=== PATIENT | female | born 1995 | race Caucasian/White ===

== ENCOUNTER 2022-11-20 16:17 | Outpatient (CLI) | payer OTHER | END 2022-11-20 16:18 | disposition home or self-care (01) | LOC: LAB 16:17 | PROVIDERS: ATTEND Nurse Practitioner Obstetrics & Gynecology | DX: O20.0 Threatened abortion (principal) | CPT/HCPCS: 36415; 84702 ==

== ENCOUNTER 2023-11-26 15:03 | Outpatient (CLI) | payer OTHER ==
--- NOTE | 2023-11-26 21:39 | Ultrasound Report ---
PROCEDURE: OB Anatomy Scan INDICATIONS: SUPERVISON OF OUTSIDE/PRIOR DATING DATA: Last menstrual period (LMP): 07/06/2019. LMP-based estimated date of delivery (IONA): 12-24. First dating scan (date and location): 11/26/2023. Estimated date of delivery (IONA) from first dating scan: 04/13/2024. The below data below was generated using the IVF transfer date IONA of 04/13/2024 TECHNIQUE: Real-time scanning was performed of the fetus, with image documentation and biometric measurements. Endovaginal scanning: Not performed. COMPARISON: None. FINDINGS: General: A single living intrauterine gestation is present. Presentation: Vertex Placenta: Placental position is anterior, without previa. Amniotic fluid index: 13.3 cm, within normal limits for gestational age. Largest pocket is 4.5 cm. heart rate: 148 beats per minute. Maternal cervical canal: Closed at 4.4 cm long; normal length is 2.5 cm or more. biometrics: Biparietal diameter: 4.7 cm, 20 weeks 2 days, 60th percentile Head circumference: 17.6 cm, 20 weeks 1 day, 46th percentile Abdominal circumference: 15.2 cm, 20 weeks 3 days, 58th percentile Femur length: 3.4 cm, 20 weeks 6 days, 72nd percentile Estimated gestational age from initial scan: 20 weeks 0 days Composite gestational age from present scan: 20 weeks 1 day Estimated weight and percentile: 360 g, 76th percentile Measurement variability in biometric dating: +/- 10 days from 12-20 weeks gestation, +/- 2 weeks from 20-30 weeks gestation, +/- 3 weeks at 30 weeks gestation or later. Anatomic survey: Neuro: Ventricles are normal at less than 10 mm. Cisterna magna is normal at 3-11 mm. Cerebellum i s normal in size and morphology. Nuchal skin fold: Normal at less than 6 mm between 14 and 20 weeks gestational age. Face: Nose and lips, facial profile are normal. Spine: No evidence for spina bifida. Heart: 4-chambered heart is present, with normal ventricular outflow tracts. Diaphragm: Diaphragm is intact. Stomach: Left-sided stomach is present. Kidneys: No hydronephrosis. Normal is less than 5 mm in 2nd trimester, less than 7 mm in 3rd trimester. Cord: 3 vessel cord has orthotopic insertion. Bladder: Normal in size. Extremities: All 4 extremities are visualized. IMPRESSION: Single live intrauterine with estimated weight at the 76th percentile. Symmetric growth and normal anatomy. Anterior placenta without previa. Closed cervix and normal amniotic fluid volume. Reviewed by: Marta Melendez MD on 11/26/2023 9:37 PM PDT Approved by: Marta Melendez MD on 11/26/2023 9:37 PM PDT Station ID: [id number]
== END 2023-11-26 15:04 | disposition home or self-care (01) ==
LOC: DI 15:03
PROVIDERS: ATTEND Nurse Practitioner Obstetrics & Gynecology
DX: Z34.02 Encounter for supervision of normal first pregnancy, second trimester (principal); Z36.89 Encounter for other specified antenatal screening

== ENCOUNTER 2023-12-31 09:38 | Outpatient (CLI) | payer OTHER ==
[2023-12-31 10:53] LABS: HCT - HEMATOCRIT 32.8 % (37.0-47.0); HGB - HEMOGLOBIN 10.9 g/dL (12.0-16.0); MEAN CORPUSCULAR HEMOGLOBIN 30.2 pg (27.0-31.0); MEAN CORPUSCULAR HGB CONC 33.2 g/dL (32.0-36.0); MEAN CORPUSCULAR VOLUME 90.9 fL (81.0-99.0); MEAN PLATELET VOLUME 10.8 fL (7.9-10.8); RED BLOOD COUNT 3.61 10^6/uL (4.20-5.40); RED CELL DISTRIBUTION WIDTH 12.9 % (12.0-15.0)
== END 2023-12-31 09:39 | disposition home or self-care (01) ==
LOC: LAB 09:38
PROVIDERS: ATTEND Nurse Practitioner Obstetrics & Gynecology
DX: Z36.9 Encounter for antenatal screening, unspecified (principal)
CPT/HCPCS: 36415; 82950; 85027

== ENCOUNTER 2024-01-29 08:00 | Outpatient (CLI) | payer OTHER ==
[2024-01-29 16:58] LABS: HCT - HEMATOCRIT 34.7 % (37.0-47.0); HGB - HEMOGLOBIN 11.3 g/dL (12.0-16.0); MEAN CORPUSCULAR HEMOGLOBIN 29.6 pg (27.0-31.0); MEAN CORPUSCULAR HGB CONC 32.6 g/dL (32.0-36.0); MEAN CORPUSCULAR VOLUME 90.8 fL (81.0-99.0); MEAN PLATELET VOLUME 12.1 fL (7.9-10.8); RED BLOOD COUNT 3.82 10^6/uL (4.20-5.40); RED CELL DISTRIBUTION WIDTH 13.2 % (12.0-15.0); WHITE BLOOD COUNT 13.2 x10^3/uL (4.8-10.8)
== END 2024-01-29 23:59 | disposition home or self-care (01) ==
LOC: LAB.WC 08:00
PROVIDERS: ATTEND Nurse Practitioner Obstetrics & Gynecology
DX: O99.019 Anemia complicating pregnancy, unspecified trimester (principal)
CPT/HCPCS: 36415; 85027

== ENCOUNTER 2024-04-17 02:18 | Inpatient (IN) ==
--- NOTE | 2024-04-17 03:09 | HISTORY & PHYSICAL EXAMINATION ---
Admit History Visit Reason Visit Reason: Contractions, Membranes rupture and Bloody show : 2 Parity: 0 Premature: 0 Ectopic: 0 : 1 Care: positive [facility] and [facility] Risk/History: positive Other (IVF) Smoking Status: Never smoker Other Maternal History Other Maternal History: HPI: This 28 yo @ 40+4 weeks by IVF transfer date/ 8 week ultrasound presents to L&D after laboring at home through the night. IVF was completed secondary to her husbands BRCA+ status. She has been wes irregularly x2 days. Her contractions became more intense since about 2200 last night when she felt a pop and her water broke last night. She is now moaning through contractions. Fluid leaking has been clear and baby has been active. Was able to rest some until about 0100 then contractions became more regular and she called her popcorn machine operator to labor with her at home. Contractions continued to get closer together and more intense. Declined cervical exam on admission. On 04/15/2024 she was 1.5cm. Desires a low intervention and unmedicated . She has been a patient of [facility]'s care until 29+2 weeks gestation when she transferred from [facility] for continuity of midwifery care. Her has been uncomplicated with the exception of mild anemia. Has had testing since 36 weeks as recommended for IVF pregnancies. ROS: No Headache, visual changes or right upper quadrant abdominal pain. Denies significant N/V. Denies urinary urgency or dysuria. All other symptoms reviewed and were negative except per HPI. In the event of an emergency, accepts the administration of blood products. Labs: pending BP: 112/79 Last u/s EFW: FAS EFW 76% (11/26/2023) Total maternal weight gain: 30# LMP: 06/16/2023 IONA by IVF transfer date: 04/13/2024 US: @ 8.0wks c/w IVF and LMP dating Final IONA: 04/13/2024 OB Hx: G1: SAB @ 4+2 weeks G2: Current Medical Hx: No significant Surgical Hx: Gordon teeth removal Social Hx: Monogamous with male partner. Denies current use of alcohol or tobacco, marijuana or other recreational drugs. Reports that she is safe in current relationship. Family Hx: Type II diabetes- multiple family members; Chrons disease- maternal aunt. Depression- brother, grandmother. Denies family history of congenital anomalies, Cystic Fibrosis or chromosomal abnormalities Allergies: Sulfa Medications: PNV, LDASA since 12 weeks, FeSO4 COURSE She underwent IVF because her Jorge L is a carrier for BRCA and they did not want to pass the gene on to their children. She reports they underwent 3 egg retrievals and 1 transfer that took on the first attempt. IVF -taking LDASA since 12wks, twice weekly NSTs @ 36wks Anemia, mild Pre- Weight: 160 BMI: 22.7 Blood type:s O pos Antibody Screen: neg CBC: PLT 237 HCT 37.1 HGB 12.2 RUB: NON-IMMUNE VZV: immune HBsAg: NR HepC: NR RPR: NR HIV: NR Flu: 01/28 Covid: x2 RSV: next visit PAP: 08/2022, +HPV (16/18 neg), repeat pap GC/CT: collect with GBS at 36wks HSV: denies in self and partner Genetic testing: neg FAS: WNL Placenta: Anterior, no previa Cord: 3VC GENIA: 13.3 EFW: 76%tile 50gm OGCT: 97 TDAP: 01/28 Breast Pump: 01/28 CBC: PLT 225 HCT 32.8 HGB 10.9 Repeat @ 29wks HGB 11.3 HCT 34.7 PLT 237 GBS: Delivery plan: Desires unmedicated delivery, doing hypnobirthing, popcorn machine operator So [place] MOD: PP BC: Likely POPs Physical exam: Normocephalic, atraumatic Heart RRR w/o M/G/R Lungs CTAB Abdomen gravid, soft, nontender. EFW 3700 FHR baseline 140, moderate variability, + accelerations, no decelerations Contractions q 2 minutes. SVE deferred Bilateral LE's no edema Mood is good. Assessment: 28 yo @ 40+3 weeks gestation by known IVF transfer date and 8 week u/s Active Labor FHR 140 Cat 1 GBS NEG Plan: Admit to [facility] for Expectant management. Support her desires for low intervention experience. Intermittent heart rate auscultation, continuous monitoring as indicated. Jacuzzi PRN. Nitrous oxide PRN.Anticipate . Meds/Allgy Home Medications Ambulatory Orders Medication Instructions Recorded Confirmed aspirin 81 mg tablet,delayed 81 mg PO QDAY 02/24/24 04/15/24 release ferrous sulfate 325 mg (65 mg 325 mg PO BID 02/24/24 04/15/24 iron) tablet vitamins no.121-iron 28 tab PO 02/24/24 04/15/24 mg-folic acid 800 mcg tablet omega-3 fatty acids 1,000 mg 1,000 mg PO QDAY 04/01/24 04/15/24 capsule Allergies Allergies Allergy/AdvReac Type Severity Reaction Status Date / Time Sulfa (Sulfonamide Allergy Unknown Verified 04/17/24 02:44 Antibiotics) [facility] Medical History Medical History (Updated 03/24/24 @ 09:47 by Nidia Mcfarlane MA) HPV (human papilloma virus) infection Family history of diabetes mellitus Surgical History Surgical History (Updated 03/24/24 @ 09:44 by Nidia Mcfarlane MA) [place] teeth removed Family History Family History (Updated 03/24/24 @ 09:48 by Nidia Mcfarlane MA) Aunt Crohn disease Brother Depressed Grandmother Depressed Cousin Zheng syndrome Social History Social History Smoking Status: Never smoker Plan for Labor Plan For Labor I expect patient to be DC'd or transferred within 96 hours.: Yes
[2024-04-17] MEDS ORDERED: TRANEXAMIC ACID IN NACL 1,000 MG/100 ML BAG IV PRN (03:50)
[2024-04-17] MEDS ORDERED: OXYTOCIN/SODIUM CHLORIDE 500 ML IV PRN ×3 (03:50→18:38)
[2024-04-17] MEDS ORDERED: TERBUTALINE 1 MG/ML VIAL SUBQ PRN (03:50)
[2024-04-17] MEDS ORDERED: METHYLERGONOVINE 0.2 MG/ML VIAL IM PRN (03:50)
[2024-04-17] MEDS ORDERED: NIFEdipine 10 MG CAPSULE PO PRN ×2 (03:50→18:38)
[2024-04-17] MEDS ORDERED: miSOPROStoL 200 MCG TABLET BC PRN (03:50)
[2024-04-17] MEDS ORDERED: miSOPROStoL 200 MCG TABLET PR PRN (03:50)
[2024-04-17] MEDS ORDERED: LACTATED RINGERS 1,000 ML IV PRN (03:50)
[2024-04-17] MEDS ORDERED: SODIUM CHLORIDE FLUSH 0.9% 10 ML SYRINGE IVP PRN (03:50)
[2024-04-17] MEDS ORDERED: OXYTOCIN 10 UNIT/ML VIAL IM PRN (03:50)
[2024-04-17 05:47] LABS: BASOPHILS % (AUTO) 0.1 %; HCT - HEMATOCRIT 34.6 % (37.0-47.0); HGB - HEMOGLOBIN 11.3 g/dL (12.0-16.0); LYMPHOCYTES # (AUTO) 1.1 10^3/uL (1.5-3.5); LYMPHOCYTES % (AUTO) 5.6 %; MEAN CORPUSCULAR HEMOGLOBIN 29.2 pg (27.0-31.0); MEAN CORPUSCULAR HGB CONC 32.7 g/dL (32.0-36.0); MEAN CORPUSCULAR VOLUME 89.4 fL (81.0-99.0); MEAN PLATELET VOLUME 13.4 fL (7.9-10.8); MONOCYTES # (AUTO) 0.9 10^3/uL (0.0-1.0); MONOCYTES % (AUTO) 4.5 %; NEUTROPHILS # (AUTO) 16.8 10^3/uL (1.5-6.6); NEUTROPHILS % (AUTO) 89.4 %; PLT - PLATELET COUNT 170 10^3/uL (130-450); RED BLOOD COUNT 3.87 10^6/uL (4.20-5.40); RED CELL DISTRIBUTION WIDTH 14.7 % (12.0-15.0); WHITE BLOOD COUNT 18.8 x10^3/uL (4.8-10.8)
--- NOTE | 2024-04-17 07:36 | PHARMACY PROGRESS NOTE ---
Best Possible Medication History Admit Date and Time: 04/17/24 [id number] Home Medications Medication Instructions Recorded Confirmed Type aspirin 81 mg tablet,delayed 81 mg PO QDAY 02/24/24 04/17/24 History release ferrous sulfate 325 mg (65 mg 325 mg PO BID 02/24/24 04/17/24 History iron) tablet vitamins no.121-iron 28 1 tab PO DAILY 02/24/24 04/17/24 History mg-folic acid 800 mcg tablet omega-3 fatty acids 1,000 mg 1,000 mg PO QDAY 04/01/24 04/17/24 History capsule Processed by: Pharmacy [facility] Statement: As the person ultimately responsible for medication therapy, providers are able to order a medication from an existing home medication list in [facility] via the "Reconcile Routine" prior to Confirmation of that medication by manager support. Such practice is discouraged except when the physician, in their clinical judgment, deems that a medical need exists for a medication without regard to previous use.
[2024-04-17] MEDS ORDERED: FERROUS SULFATE 325 MG TABLET PO SCH (09:00)
[2024-04-17] MEDS: LIDOCAINE JELLY 2% 6 ML JEL.PF.APP TOP ONE ×2 (12:14→12:48)
[2024-04-17] MEDS: OXYTOCIN/SODIUM CHLORIDE 500 ML IV SCH (13:58)
[2024-04-17] MEDS ORDERED: LIDOCAINE 2%-EPI 1:100000 20 ML MDV ONE (15:18)
[2024-04-17] MEDS ORDERED: ROPIVACAINE 0.2% 200 MG/100 ML BAG EP ONE (15:18)
--- NOTE | 2024-04-17 15:32 | CONSULTATION NOTE ---
Referring Provider Name of Referring Provider:: MARILIA Verdugo Consult Date: 04/17/24 Chief Complaint Chief Complaint Chief Complaint: Prolonged Labor History of Present Illness History of Present Illness HPI Comment/Other: I was called by the Sorting Machine Attendant MARILIA Verdugo to evaluate the patient for prolonged labor. Nasrin is a 28y/o at 40 weeks 4 days followng IVF . The patient presented to labor and delivery in labor. On exam around 0700 she was 7 cm. She progressed to complete cervical dilation and began pusing around 1100. She was started on Pitocin after she had not made progress with pushing. Her , mother and distribution field technician are at the bedside. SVE: C/C/0. Caput noted. Minimal progress with pushing. EFM- 180 BPM, Declerations to 140's noted. Baseline previously 150BPM. Afebrile. Recommend IV fluid hydration given tachycardia. Anesthesia evaluation for epidural.May reassess for vaginal delivery if monitoring reassuring after epidural. Plan discussed with field services analyst and patient who is agreeable with the plan. Meds/Allgy Home Medications Ambulatory Orders Medication Instructions Recorded Confirmed aspirin 81 mg tablet,delayed 81 mg PO QDAY 02/24/24 04/17/24 release ferrous sulfate 325 mg (65 mg 325 mg PO BID 02/24/24 04/17/24 iron) tablet vitamins no.121-iron 28 1 tab PO DAILY 02/24/24 04/17/24 mg-folic acid 800 mcg tablet omega-3 fatty acids 1,000 mg 1,000 mg PO QDAY 04/01/24 04/17/24 capsule Allergies Allergies Allergy/AdvReac Type Severity Reaction Status Date / Time Sulfa (Sulfonamide Allergy Unknown Verified 04/17/24 02:44 Antibiotics) [facility] Medical History Medical History HPV (human papilloma virus) infection Family history of diabetes mellitus Surgical History Surgical History [place] teeth removed Family History Family History Aunt Crohn disease Brother Depressed Grandmother Depressed Cousin Zheng syndrome Social History Social History Smoking Status: Never smoker Do you dip or chew tobacco?: No Patient requests smoking cessation consult: No Initiate information on smoking cessation: No Results Lab Results 04/17/24 05:38 Other Lab Results: Lab Results x24hrs 04/17/24 04/17/24 Range/Units 06:45 05:38 WBC 18.8 H (4.8-10.8) x10^3/uL RBC 3.87 L (4.20-5.40) 10^6/uL Hgb 11.3 L (12.0-16.0) g/dL Hct 34.6 L (37.0-47.0) % MCV 89.4 (81.0-99.0) fL MCH 29.2 (27.0-31.0) pg MCHC 32.7 (32.0-36.0) g/dL RDW 14.7 (12.0-15.0) % Plt Count 170 (130-450) 10^3/uL MPV 13.4 H (7.9-10.8) fL Neut # (Auto) 16.8 H (1.5-6.6) 10^3/uL Lymph # (Auto) 1.1 L (1.5-3.5) 10^3/uL [place] # (Auto) 0.9 (0.0-1.0) 10^3/uL Eos # (Auto) 0.0 (0.0-0.7) 10^3/uL Baso # (Auto) 0.0 (0.0-0.1) 10^3/uL Absolute Nucleated RBC 0.00 x10^3/uL Nucleated RBC % 0.0 /100WBC Blood Type O POSITIVE Blood Type Recheck O POSITIVE Antibody Screen NEGATIVE Conclusion/Plan Lab Results 04/17/24 05:38
--- NOTE | 2024-04-17 15:32 | PROVIDER PROGRESS NOTE ---
Labor Progress Note Labor Progress Note Labor Progress Note/Additional Text: S/O: Patient feeling exhausted after 4 hours of active second stage. Patient progressed naturally to 7.5cm by 0800 this morning and to 9.5cm at 10:45am, and began spontaneous pushing. Frequent positional changes of pushing. Using nitrous only for pain relief. Now feeling more exhausted. Agreed to IV placement after discussion of increased risks of hemorrhage and intrauterine resuscitation. call centre supervisor OB was called at 2 hours of pushing and made aware of ongoing second stage, but both baby and Mom were tolerating the pushing well. Patient agreed to low dose pitocin to increase power behind the pushes. At 3.5 hours of pushing deceleration, not well traced but to 70's-80's x 4 minutes but resolved with following tachycardia. Intermittent recurrence of anterior cervical lip despite gently pushing behind the head. call centre supervisor OB called unit for standby then asked to come into room for assessment and consideration for vacuum extraction. Discussed other options to include epidural. anesthesia pitocin at 4mu/minute at that time with contractions q 2-3 minutes. call centre supervisor OB recommended epidural anesthesia and continued pushing if patient feels she can tolerate it. A: 28 yo @ 40+4 wks gestation by known IVF transfer and consistent with 8 week ultrasound Spontaneous labor onset following SROM Prolonged second stage FHR Category I-II GBS neg Rh Neg P: Epidural anesthesia then con Continue to titrate pitocin to increase power behind second stage Continuous monitoring. encourage rotations in bed on peanut ball Reviewed plan of care with skye physician
--- NOTE | 2024-04-17 16:21 | ANESTHESIA PROCEDURE NOTE ---
Pre-Anesthesia VS, & Labs Diagnosis Surgical Diagnosis:: labor pain Procedure Procedure: labor epidural Vitals Vital Signs: Temp Pulse Resp BP Pulse Ox 36.6 C 106 H 16 109/73 98 04/17/24 06:15 04/17/24 06:15 04/17/24 06:15 04/17/24 06:15 04/17/24 03:00 NPO NPO: Other Is Patient ?: Yes Lab Results Current Lab Results: Laboratory Tests 04/17/24 06:45: Blood Type Recheck O POSITIVE 04/17/24 05:38: WBC 18.8 H, RBC 3.87 L, Hgb 11.3 L, Hct 34.6 L, MCV 89.4, MCH 29.2, MCHC 32.7, RDW 14.7, Plt Count 170, MPV 13.4 H, Neut # (Auto) 16.8 H, L ymph # (Auto) 1.1 L, [place] # (Auto) 0.9, Eos # (Auto) 0.0, Baso # (Auto) 0.0, Absolute Nucleated RBC 0.00, Nucleated RBC % 0.0, Blood Type O POSITIVE, Antibody Screen NEGATIVE 04/17/24 05:38 Meds/Allgy Home Medications Ambulatory Orders Medication Instructions Recorded Confirmed aspirin 81 mg tablet,delayed 81 mg PO QDAY 02/24/24 04/17/24 release ferrous sulfate 325 mg (65 mg 325 mg PO BID 02/24/24 04/17/24 iron) tablet vitamins no.121-iron 28 1 tab PO DAILY 02/24/24 04/17/24 mg-folic acid 800 mcg tablet omega-3 fatty acids 1,000 mg 1,000 mg PO QDAY 04/01/24 04/17/24 capsule Allergies Allergies Allergy/AdvReac Type Severity Reaction Status Date / Time Sulfa (Sulfonamide Allergy Unknown Verified 04/17/24 02:44 Antibiotics) [facility] Medical History Medical History HPV (human papilloma virus) infection Family history of diabetes mellitus Surgical History Surgical History [place] teeth removed Family History Family History Aunt Crohn disease Brother Depressed Grandmother Depressed Cousin Zheng syndrome Social History Social History Smoking Status: Never smoker Do you dip or chew tobacco?: No Patient requests smoking cessation consult: No Initiate information on smoking cessation: No POLST POLST Status: Full Code Anesthesia Exam (Expanded) Exam General: Alert, Oriented x3 and Cooperative Dental: WNL Mouth Openin Fingerbreadth Neck Mobility: Normal Mallampati classification: I Thyromental Distance: 4-6 cm Respiratory: Lungs clear Cardiovascular: Regular rate Plan Plan Anesthesia Type: Epidural Consent for Procedure(s) Verified and Reviewed: Yes Code Status: Attempt Resuscitation ASA Classification ASA classification: 2-Mild systemic disease Is this case an emergency?: No
[2024-04-17] MEDS ORDERED: ePHEDrine 50 MG/ML VIAL IVP PRN (16:22)
[2024-04-17] MEDS ORDERED: LACTATED RINGERS 500 ML IV ONE (16:22)
[2024-04-17] MEDS ORDERED: NALOXONE 0.4 MG/ML VIAL IVP PRN ×2 (16:22→18:38)
[2024-04-17] MEDS ORDERED: METOCLOPRAMIDE 10 MG/2 ML VIAL IVP PRN (16:22)
[2024-04-17] MEDS ORDERED: NALBUPHINE 10 MG/ML AMP IVP PRN (16:22)
[2024-04-17] MEDS ORDERED: diphenhydrAMINE INJ 50 MG/ML VIAL IVP PRN (16:22)
[2024-04-17] MEDS ORDERED: ONDANSETRON 4 MG/2 ML VIAL IVP PRN (16:22)
[2024-04-17] MEDS ORDERED: ROPIVACAINE 0.2% 200 MG/100 ML BAG EP PRN (16:22)
--- NOTE | 2024-04-17 18:07 | PROVIDER PROGRESS NOTE ---
Subjective Prog Note Date Prog Note Date: 04/17/24 Subjective Subjective: Incorrect note chosen Current Medications Current Medications Current Medications: Current Medications Generic Name Dose Route Start Last Admin Trade Name Ananthq PRN Reason Stop Dose Admin Diphenhydramine HCl 12.5 - 25 mg 04/17/24 16:22 Diphenhydramine Inj 50 Mg/Ml Vial IVP Q6HR PRN ITCHING Ephedrine Sulfate 5 mg 04/17/24 16:22 Ephedrine 50 Mg/Ml Vial IVP Q5M PRN For SBP<100;give until SBP>100 Ferrous Sulfate 325 mg 04/17/24 09:00 Ferrous Sulfate 325 Mg Tablet PO BID ERYN Lactated Ringer's 500 mls @ 999 mls/hr 04/17/24 03:50 Lr IV PRN PRN resuscitation Oxytocin/Sodium Chloride 500 mls @ 999 mls/hr 04/17/24 03:50 Pitocin/Sodium Chloride IV PRN PRN POST- HEMORR PREVENTION Protocol 999 MILLIUNIT/MIN Tranexamic Acid 1,000 mg in 100 mls @ 600 mls/hr 04/17/24 03:50 Tranexamic 1,000 Mg/100ml-Nacl IV Q30M PRN EBL >1200mL and within 3hr Oxytocin/Sodium Chloride 500 mls @ 999 mls/hr 04/17/24 13:43 Pitocin/Sodium Chloride IV PRN PRN POST- HEMORR PREVENTION Protocol 999 MILLIUNIT/MIN Oxytocin/Sodium Chloride 500 mls @ 2 mls/hr 04/17/24 14:00 04/17/24 13:58 Pitocin/Sodium Chloride IV 2 milliunit/min TITR ERYN 2 mls/hr Administration Protocol 2 MILLIUNIT/MIN Ropivacaine 200 mg in 100 mls @ 0 mls/hr 04/17/24 16:22 Naropin 0.2% EP PRN PRN PAIN Protocol Per Protocol Lidocaine HCl 20 ml 04/17/24 03:50 Lidocaine 1% 20 Ml Mdv ID 04/20/24 03:50 .ONCE PRN PERINEAL REPAIR Methylergonovine Maleate 0.2 mg 04/17/24 03:50 Methylergonovine 0.2 Mg/Ml Vial IM .ONCE PRN Hemorrhage Metoclopramide HCl 10 mg 04/17/24 16:22 Metoclopramide 10 Mg/2 Ml Vial IVP Q6HR PRN Nausea / Vomiting Misoprostol 600 mcg 04/17/24 03:50 Misoprostol 200 Mcg Tablet BC .ONCE PRN Hemorrhage Misoprostol 800 mcg 04/17/24 03:50 Misoprostol 200 Mcg Tablet VT .ONCE PRN Hemorrhage Nalbuphine HCl 2.5 - 5 mg 04/17/24 16:22 Nalbuphine 10 Mg/Ml Amp IVP Q4H PRN ITCHING Naloxone HCl 0.1 mg 04/17/24 16:22 Naloxone 0.4 Mg/Ml Vial IVP Q2M PRN RR<8 Nifedipine 10 - 20 mg 04/17/24 03:50 Nifedipine 10 Mg Capsule PO Q20M PRN SBP> or= 160 OR DBP> or= 110 Protocol Ondansetron HCl 4 mg 04/17/24 16:22 Ondansetron 4 Mg/2 Ml Vial IVP Q6HR PRN Nausea / Vomiting Oxytocin 10 unit 04/17/24 03:50 Oxytocin 10 Unit/Ml Vial IM .ONCE PRN Step One if no IV access. Multivit/Folic Acid/Iron 1 tab 04/17/24 09:00 Vitamin Tablet PO DAILY ERYN Sodium Chloride 10 ml 04/17/24 03:50 Sodium Chloride Flush 0.9% 10 Ml Syringe IVP PRN PRN NEEDED PER PROVIDER ORDERS Sodium Chloride 10 ml 04/17/24 04:00 Sodium Chloride Flush 0.9% 10 Ml Syringe IVP Q8H ERYN Terbutaline Sulfate 0.25 mg 04/17/24 03:50 Terbutaline 1 Mg/Ml Vial SUBQ .ONCE PRN Tachystole Objective Vital Signs/Intake & Output Intake & Output: Intake & Output 04/15/24 04/16/24 04/17/24 04/18/24 05:59 05:59 05:59 05:59 Weight (kg) 160 lb Lab Results 04/17/24 05:38 Other Labs: Lab Results x24hrs 04/17/24 04/17/24 Range/Units 06:45 05:38 WBC 18.8 H (4.8-10.8) x10^3/uL RBC 3.87 L (4.20-5.40) 10^6/uL Hgb 11.3 L (12.0-16.0) g/dL Hct 34.6 L (37.0-47.0) % MCV 89.4 (81.0-99.0) fL MCH 29.2 (27.0-31.0) pg MCHC 32.7 (32.0-36.0) g/dL RDW 14.7 (12.0-15.0) % Plt Count 170 (130-450) 10^3/uL MPV 13.4 H (7.9-10.8) fL Neut # (Auto) 16.8 H (1.5-6.6) 10^3/uL Lymph # (Auto) 1.1 L (1.5-3.5) 10^3/uL [place] # (Auto) 0.9 (0.0-1.0) 10^3/uL Eos # (Auto) 0.0 (0.0-0.7) 10^3/uL Baso # (Auto) 0.0 (0.0-0.1) 10^3/uL Absolute Nucleated RBC 0.00 x10^3/uL Nucleated RBC % 0.0 /100WBC Blood Type O POSITIVE Blood Type Recheck O POSITIVE Antibody Screen NEGATIVE
--- NOTE | 2024-04-17 18:09 | PROVIDER PROGRESS NOTE ---
Labor Progress Note Labor Progress Note Labor Progress Note/Additional Text: @ 1700, Patient comfortable after epidural and continued to push with minimal progress, frequent decelerations despite interventions. Labor management transitioned to on-call OB physician given escalation in risk and vacuum application indicated. I have remained in the room to support patient through delivery.
[2024-04-17] MEDS: lidocaine 1% 20 ML MDV ID PRN (18:17)
[2024-04-17] MEDS ORDERED: hydrALAZINE INJ 20 MG/ML VIAL IVP PRN ×2 (18:38)
[2024-04-17] MEDS ORDERED: SIMETHICONE CHEW 80 MG TABLET PO PRN (18:38)
[2024-04-17] MEDS ORDERED: LABETALOL 20 MG/4 ML SYRINGE IVP PRN ×2 (18:38)
[2024-04-17] MEDS ORDERED: LABETALOL 5 MG/1 ML 20 ML MDV IVP PRN (18:38)
[2024-04-17] MEDS ORDERED: WITCH HAZEL/GLYCERIN 1 PAD TOP PRN (18:43)
[2024-04-17] MEDS ORDERED: HYDROCORTISONE 1% CREAM 28 GM TUBE TOP PRN (18:43)
--- NOTE | 2024-04-17 18:50 | DELIVERY NOTE ---
Delivery Note Labor Labor: positive Spontaneous Infant Delivery Method Infant Delivery Method: positive Vacuum assist Presentation Presentation: positive Vertex and ZAK - right occiput anterior Nuchal Cord Nuchal Cord: positive None Anesthetic Anesthetic: positive Lidocaine - 0.5% plain Vacuum Use Indication for Vacuum Use: positive Prolonged 2nd stage and Suspicion of immediate or potential compromise Type of Vacuum Cup: positive Other ([place] ) Vacuum Extraction: positive Successful Number of pop-offs: 0 Episiotomy Type Episiotomy Type: positive Right mediolateral Laceration Laceration: positive 2nd degree Suture Suture Type: positive Chromic Suture Size: positive 2-0 Delivery Outcome Delivery Date: 04/17/24 Delivery Time: 17:39 Delivery Outcome: positive Livebirth [place]: positive Placed in direct skin contact with mother [place] sex: positive Female Placenta Placenta: positive Intact Estimated Blood Loss Estimated Blood Loss (in cc): 500 Post Delivery Events Post Delivery Events: positive No post delivery events Delivery Comments (Free Text/Narrative) Delivery Comments (Free Text/Narrative): I was asked to evaluate the patient for prolonged second stage of labor. I reviewed the strip and the patient was noted to have decelerations from baseline of 120s down to 80s with slow recovery. This resolved with oxygen, repositioning and Pitocin arrest. The patient was found to be completely dilated and at +1 station. I discussed the need to expedite delivery with the patient who agreed with placement of a vacuum. The OR team and anesthesia were notified. In order to expedite delivery and vacuum placement a second degree right mediolateral episiotomy was performed with maternal consent. The vacuum was placed without difficulty. The head was delivered with traction x 2 with 0 pop-off's. Following delivery of the head, the anterior shoulder was delivered without difficulty followed subsequently by the posterior shoulder and the remainder of the baby. The baby was vigorous at delivery. The cord was doubly clamped and cut after 1 minute and the baby placed on the maternal chest. Cord segment was obtained for cord gases. Cord blood was obtained. The placenta was delivered with fundal massage. Evaluation of the perineum revealed a second-degree right mediolateral laceration. This was repaired using chromic suture in a continuous locking fashion. Hemostasis was noted. All instruments were removed. The patient remained in stable condition. Apgars 9/9 Delivery time 1739 Male EBL 500
[2024-04-17] MEDS: IBUPROFEN 600 MG TABLET PO PRN (20:15)
[2024-04-17] MEDS: ACETAMINOPHEN 500 MG TABLET PO PRN (20:17)
[2024-04-17] MEDS: FERROUS SULFATE 300 MG/5 ML UDC PO SCH (21:10)
[2024-04-17] MEDS: SODIUM CHLORIDE FLUSH 0.9% 10 ML SYRINGE IVP SCH (21:11)
[2024-04-17] MEDS: DOCUSATE SODIUM 100 MG CAPSULE PO SCH (21:13)
[2024-04-18] MEDS: PRENATAL VITAMIN TABLET PO SCH (07:22)
[2024-04-18 08:43] LABS: HCT - HEMATOCRIT 33.8 % (37.0-47.0); HGB - HEMOGLOBIN 11.1 g/dL (12.0-16.0); MEAN CORPUSCULAR HEMOGLOBIN 29.4 pg (27.0-31.0); MEAN CORPUSCULAR HGB CONC 32.8 g/dL (32.0-36.0); MEAN CORPUSCULAR VOLUME 89.7 fL (81.0-99.0); MEAN PLATELET VOLUME 12.7 fL (7.9-10.8); RED BLOOD COUNT 3.77 10^6/uL (4.20-5.40); RED CELL DISTRIBUTION WIDTH 15.2 % (12.0-15.0); WHITE BLOOD COUNT 23.6 x10^3/uL (4.8-10.8)
--- NOTE | 2024-04-18 08:56 | PROVIDER PROGRESS NOTE ---
Subjective Prog Note Date Prog Note Date: 04/18/24 Prog Note Time: 08:00 Subjective Subjective: Subjective: Patient reports she is doing well. Comfortable WITHOUT narcotic pain management Lochia appropriate. Denies heavy bleeding. Ambulating. perineum is tender at episotomy site, but not terrible Tolerating oral intake. Diet: Regular. Voiding without difficulty. Passing flatus. Denies BM. Nervous about her first BM post epis. Discussed stool softening. Patient is bonding with baby in room. Baby having some temperature instability issues. (Mostly resolved by midday) Breast feeding going well. Denies feeling lightheaded, dizzy or excessively fatigued. Objective General: Alert, oriented, no apparent distress. Cardiovascular: No edema. Regular rate and rhythm Lungs: No increased work of breathing. Abdomen: Uterus firm. Below umbilicus. No guarding or rebound tenderness. Extremities: No pain on palpation. Distal pulses intact. VZV: immune Rubella: non-immune. will plan for MMR prior to discharge Current Medications Current Medications Current Medications: Current Medications Generic Name Dose Route Start Last Admin Trade Name Freq PRN Reason Stop Dose Admin Acetaminophen 1,000 mg 04/17/24 18:38 04/17/24 20:17 Acetaminophen 500 Mg Tablet PO 1,000 mg Q8HR PRN Administration Mild Pain or Fever>38C(100.4F) Diphenhydramine HCl 12.5 - 25 mg 04/17/24 16:22 Diphenhydramine Inj 50 Mg/Ml Vial IVP Q6HR PRN ITCHING Docusate Sodium 100 mg 04/17/24 21:00 04/18/24 08:42 Docusate Sodium 100 Mg Capsule PO 100 mg BID ERYN Administration Ephedrine Sulfate 5 mg 04/17/24 16:22 Ephedrine 50 Mg/Ml Vial IVP Q5M PRN For SBP<100;give until SBP>100 Ferrous Sulfate 300 mg 04/17/24 20:00 04/18/24 08:42 Ferrous Sulfate 300 Mg/5 Ml Udc PO 300 mg DAILYWM ERYN Administration Hydralazine HCl 10 mg 04/17/24 18:38 Hydralazine Inj 20 Mg/Ml Vial IVP .ONCE PRN SBP> or= 160 OR DBP> or= 110 Protocol Hydralazine HCl 5 - 10 mg 04/17/24 18:38 Hydralazine Inj 20 Mg/Ml Vial IVP Q20M PRN SBP >=160 and/or DBP >=110 Protocol Hydrocortisone 1 applic 04/17/24 18:43 Hydrocortisone 1% Cream 28 Gm Tube TOP QID PRN Hemorrhoids Lactated Ringer's 500 mls @ 999 mls/hr 04/17/24 03:50 Lr IV PRN PRN resuscitation Oxytocin/Sodium Chloride 500 mls @ 999 mls/hr 04/17/24 03:50 Pitocin/Sodium Chloride IV PRN PRN POST- HEMORR PREVENTION Protocol 999 MILLIUNIT/MIN Tranexamic Acid 1,000 mg in 100 mls @ 600 mls/hr 04/17/24 03:50 Tranexamic 1,000 Mg/100ml-Nacl IV Q30M PRN EBL >1200mL and within 3hr Ibuprofen 600 mg 04/17/24 18:38 04/18/24 08:42 Ibuprofen 600 Mg Tablet PO 600 mg Q6HR PRN Administration Moderate Pain (Level 4-6) Labetalol HCl 20 - 80 mg 04/17/24 18:38 Labetalol 5 Mg/1 Ml 20 Ml Mdv IVP Q10M PRN SBP> or= 160 OR DBP> or= 110 Protocol Labetalol HCl 20 - 40 mg 04/17/24 18:38 Labetalol 20 Mg/4 Ml Syringe IVP Q10M PRN SBP> or= 160 OR DBP> or= 110 Protocol Labetalol HCl 20 mg 04/17/24 18:38 Labetalol 20 Mg/4 Ml Syringe IVP .ONCE PRN SBP >=160 and/or DBP >=110 Protocol Misoprostol 800 mcg 04/17/24 03:50 Misoprostol 200 Mcg Tablet ME .ONCE PRN Hemorrhage Naloxone HCl 0.4 mg 04/17/24 18:38 Naloxone 0.4 Mg/Ml Vial IVP .ONCE PRN Opioid Overdose Nifedipine 10 - 20 mg 04/17/24 03:50 Nifedipine 10 Mg Capsule PO Q20M PRN SBP> or= 160 OR DBP> or= 110 Protocol Nifedipine 10 - 20 mg 04/17/24 18:38 Nifedipine 10 Mg Capsule PO Q20M PRN SBP >=160 and/or DBP >=110 Protocol Ondansetron HCl 4 mg 04/17/24 16:22 Ondansetron 4 Mg/2 Ml Vial IVP Q6HR PRN Nausea / Vomiting Oxytocin 10 unit 04/17/24 03:50 Oxytocin 10 Unit/Ml Vial IM .ONCE PRN Step One if no IV access. Multivit/Folic Acid/Iron 1 tab 04/17/24 09:00 04/18/24 08:45 Vitamin Tablet PO Not Given DAILY ERYN Simethicone 80 mg 04/17/24 18:38 Simethicone Chew 80 Mg Tablet PO TID PRN Gas Sodium Chloride 10 ml 04/17/24 03:50 Sodium Chloride Flush 0.9% 10 Ml Syringe IVP PRN PRN NEEDED PER PROVIDER ORDERS Witch Bev/Glycerin 1 pad 04/17/24 18:43 Witch Bev/Glycerin 1 Pad TOP PRN PRN ITCHING Objective Vital Signs/Intake & Output Vital Signs: Vital Signs x48h Temp Pulse Resp BP Pulse Ox 04/18/24 08:46 36.6 C 88 16 139/83 H 04/18/24 06:27 37.0 C 79 14 110/52 L 97 04/18/24 02:00 37.1 C 88 18 118/80 98 Intake & Output: Intake & Output 04/16/24 04/17/24 04/18/24 04/19/24 05:59 05:59 05:59 05:59 Output Total 250 / 250 Balance -250 / -250 Weight (kg) 160 lb Objective Eyes Bilateral: positive Other Lab Results 04/18/24 08:37 Other Labs: Lab Results x24hrs 04/18/24 Range/Units 08:37 WBC 23.6 H (4.8-10.8) x10^3/uL RBC 3.77 L (4.20-5.40) 10^6/uL Hgb 11.1 L (12.0-16.0) g/dL Hct 33.8 L (37.0-47.0) % MCV 89.7 (81.0-99.0) fL MCH 29.4 (27.0-31.0) pg MCHC 32.8 (32.0-36.0) g/dL RDW 15.2 H (12.0-15.0) % Plt Count 191 (130-450) 10^3/uL MPV 12.7 H (7.9-10.8) fL Assessment/Plan Problem List (1) care and examination of lactating mother: Impression: day 1. 28 yo s/p VAVD on 04/17/2024 date Following prolonged second stage. Delivery over a mediolateral episiotomy. - Routine care - Anticipate discharge tomorrow (2) History of episiotomy: Impression: see # 1
[2024-04-19] MEDS ORDERED: MEASLES,MUMPS & RUBELLA VACC 0.5 ML VIAL SUBQ ONE (04:44)
[2024-04-19] MEDS: MEASLES,MUMPS & RUBELLA VACC 0.5 ML VIAL SUBQ ONE (05:03)
--- NOTE | 2024-04-19 10:18 | Discharge Summary ---
Discharge Summary HPI History of Present Illness: Date of Admission: 04/17/2024 Date of Discharge: 04/19/2024 Diagnosis on admission: 1. 28 yo @ 40+4 weeks gestation by known IVF transfer date and 8 week u/s 2. Active Labor 3. FHR 140 Cat 1 4. GBS NEG Diagnosis on Discharge 1. 28 yo s/p VAVD with [id number] episiotomy 04/17/2024 @ 1739 2. PPD #2 3. Physical exam: Normocephalic, atraumatic Heart RRR w/o M/G/R Lungs CTAB Normal uterine involution, FF below umbilicus Small/ scant rubra bleeding Some perineal discomfort and soreness. Endorsed a BM that "wasn't as bad as she expected" Bilateral LE's trace edema Continues to process her but mood is otherwise good. Brief History: She is a patient of [facility] who presented on 04/17/2024 in active labor. She was found to be wes regularly. Significantly prolonged second stage of labor. Delivery with vacuum and mediolateral episiotomy. She delivered a viable male apgars 8 and 9 at 1 and 5 minutes respectively. EBL 500 ml. She has been doing well in her course. She is ambulating and tolerating a regular diet. She is urinating without difficulty and her lochia is normal. Her pain is well controlled without narcotic management. She will be discharged to home today on day 2 and encouraged IBU, tylenol and stool softeners PRN. She intends to follow up with [facility] in 1 week for telehealth. She has been given precautions to call if she has any new or worsening sx such as fevers, chills, abdominal pain, increasing bleeding, or foul smelling vaginal lochia. preeclamptic precautions reviewed as well. ALLERGIES Allergies Allergy/AdvReac Type Severity Reaction Status Date / Time Sulfa (Sulfonamide Allergy Unknown Verified 04/17/24 02:44 Antibiotics) MEDICATIONS Ambulatory Orders Medication Instructions Recorded Confirmed ferrous sulfate 325 mg (65 mg 325 mg PO BID 02/24/24 04/17/24 iron) tablet vitamins no.121-iron 28 1 tab PO DAILY 02/24/24 04/17/24 mg-folic acid 800 mcg tablet omega-3 fatty acids 1,000 mg 1,000 mg PO QDAY 04/01/24 04/17/24 capsule LABS 04/18/24 08:37 Discharge Plan Discharge Patient Disposition: 01 HUNTER, Self Care Prescriptions: Continued PNV no.[id number] acid 28 mg iron- 800 mcg tablet 1 tab PO DAILY ferrous sulfate 325 mg (65 mg iron) tablet 325 mg PO BID omega-3 fatty acids 1,000 mg capsule 1,000 mg PO QDAY Discontinued aspirin 81 mg tablet,delayed release (DR/EC) 81 mg PO QDAY Print Language: Togolese Patient Instructions: Breastfeed Holds, Anatomy, Benefits
[2024-04-19 12:54] VITALS: O2SAT 98
--- NOTE | 2024-04-19 12:58 | Labor Flowsheet ---
Labor Flowsheet Datetime Report Generated by CPN: 04/19/2024 12:58 Datetime: 04/19/2024 11:13 VITAL SIGNS NBP Sys/Yue/Mean (mmHg): 129 : 66 : 80 Pulse: 68 Datetime: 04/17/2024 18:36 Respirations: 20 Temperature (C): 36.8 Datetime: 04/17/2024 17:40 Stage of : Datetime: 04/17/2024 17:39 Vacuum: Off Datetime: 04/17/2024 17:34 SpO2 (%): 100 LaborFlag: Labor Datetime: 04/17/2024 17:32 Actions for Decelerations: Side to Side Datetime: 04/17/2024 17:30 UTERINE ACTIVITY Monitor Mode: External Frequency (min): 2-3 Duration (sec): 60-80 Pattern: Normal: <= 5 Contractions in 10 Minutes Contraction Comments: per pt report, pt breathing through and not pushing with some contractions ASSESSMENT A Monitor Mode: External US FHR Baseline Rate : 120 Variability: Moderate 6-25 bpm Decelerations: Late; Prolonged Category: Category II Comments: RN and CNM continuously at bedside and are assessing FHR and ctx q5mins PATIENT CARE Oxygen Method: Room Air Datetime: 04/17/2024 17:24 Preparation for Delivery: Setup for Delivery Datetime: 04/17/2024 17:17 I/O Interventions: Straight Cath (ml) @ 50 Patient Care Comments: by MD Datetime: 04/17/2024 17:10 MEDICATIONS Pitocin (milliunits): Discontinued Datetime: 04/17/2024 16:55 Patient Position/Activity: Right Tilt Datetime: 04/17/2024 16:51 Medication Comments: per order, CNM reviewedstrip Datetime: 04/17/2024 16:38 STAGE 2 Pushing Position: Pushing with Contractions; Pushing Lithotomy Datetime: 04/17/2024 15:45 Quality: Moderate Resting Tone (Palpate): Relaxed Datetime: 04/17/2024 15:39 Epidural Procedure: Loading Dose Datetime: 04/17/2024 15:38 Monitor Interventions for UA: Hissop Adjusted Datetime: 04/17/2024 15:34 Stage 2 Comments: pt taking a break from pushing while epidural takes effect Datetime: 04/17/2024 15:23 PROCEDURE TIME OUT Procedure Verify: Correct Patient Identity; Correct Side and Site are Marked; Accurate Procedure Co nsent Form; Agreement on Procedure to be Done; Correct Patient Position; Relevant Images and Results are Properly Labeled and Displayed; Addressed Need to Administer Antibiotics or Fluids for Irrigation ; Safety Precautions Based on Patient History or Medication Use ANESTHESIA Anesthesia Plans: Epidural Epidural Positioning: Sitting Datetime: 04/17/2024 15:19 Anesthesia Comments: anesthesia at bedside Datetime: 04/17/2024 15:15 FHR Baseline Changes: Tachycardia Datetime: 04/17/2024 15:09 PAIN Pain Coping: Declines Medication or Epidural Datetime: 04/17/2024 15:04 Communication Comments: Dr. Amagwula at bedside and reviewed strip Datetime: 04/17/2024 13:29 Accelerations: 15X15 Datetime: 04/17/2024 10:28 VAGINAL EXAM Dilatation (cm): 9.5 Station: 0 Exam by: Denisha Nancy CNM Datetime: 04/17/2024 10:23 COMMUNICATION Communication: RN at Bedside; Provider at Bedside Datetime: 04/17/2024 08:40 Monitor Interventions for FHR: Ultrasound Adjusted Datetime: 04/17/2024 08:04 Effacement (%): 90 Vaginal Exam Comments: exam by CNM Denisha B. Datetime: 04/17/2024 04:28 Pain Assessment Comments: nitrous started Datetime: 04/17/2024 03:12 Membranes Ruptured Date/Time: 04/16/2024 23:00 Membranes Rupture Method: Spontaneous Amniotic Fluid Color: Clear Station Vacuum/Forceps Applied: +2 Datetime: 04/17/2024 02:33 Notification Reason: Status Update; Labor Status
== END 2024-04-19 11:55 | disposition home or self-care (01) | DRG 807 ==
LOC: WFO 02:18 → FBP 02:23
PROVIDERS: ADMIT Nurse Practitioner; ATTEND Nurse Practitioner
DX: Z83.3 Family history of diabetes mellitus; Z3A.40 40 weeks gestation of pregnancy; O70.1 Second degree perineal laceration during delivery; O99.02 Anemia complicating childbirth; O63.1 Prolonged second stage (of labor); Z37.0 Single live birth; O76 Abnormality in fetal heart rate and rhythm complicating labor and delivery